=== PATIENT | male | born 2000 | race Caucasian/White ===

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

== ENCOUNTER 2023-08-04 17:15 | Emergency (ER) | payer OTHER ==
[2023-08-04 17:28] VITALS: BP 160/70; PULSE 85; RESP 20; TEMP 98; BMI 29.2
== END 2023-08-04 18:07 | disposition home or self-care (01) ==
LOC: FER 17:15
DX: J45.20 Mild intermittent asthma, uncomplicated (principal); R06.02 Shortness of breath
CPT/HCPCS: 99283-25